=== PATIENT | male | born 1960 | race Caucasian/White ===

== ENCOUNTER 2019-10-22 17:29 | Emergency (ER) | payer OTHER ==
[2019-10-22 17:40] VITALS: BP 124/87; PULSE 63; RESP 18; TEMP 98.3
--- NOTE | 2019-10-22 19:08 | XR ---
EXAMINATION TYPE: XR tibia fibula RT DATE OF EXAM: 10/22/2019 COMPARISON: NONE HISTORY: Leg pain TECHNIQUE: 4 views FINDINGS: The tibia and fibula appear intact. I see no fracture nor dislocation. Knee joint and ankle joint appear intact. IMPRESSION: Negative right tibia and fibula exam.
--- NOTE | 2019-10-22 19:11 | XR ---
EXAMINATION TYPE: XR foot complete RT DATE OF EXAM: 10/22/2019 COMPARISON: NONE HISTORY: Foot pain TECHNIQUE: 3 views FINDINGS: Metatarsals are intact. I see no fracture nor dislocation. There is soft tissue swelling of the forefoot. IMPRESSION: Soft tissue swelling. No fracture seen.
--- NOTE | 2019-10-22 19:43 | US ---
EXAMINATION TYPE: US venous doppler duplex LE RT DATE OF EXAM: 10/22/2019 7:39 PM COMPARISON: NONE CLINICAL HISTORY: r/o blood clot. R/O blood clot. Patient injured leg at work 2 weeks ago. Pain. No h x of DVT. Patient does not take blood thinners. SIDE PERFORMED: Right TECHNIQUE: The lower extremity deep venous system is examined utilizing real time linear array sonog antonio with graded compression, doppler sonography and color-flow sonography. VESSELS IMAGED: External Iliac Vein (EIV) Common Femoral Vein Deep Femoral Vein Greater Saphenous Vein * Femoral Vein Popliteal Vein Small Saphenous Vein * Proximal Calf Veins (* superficial vessels) Right Leg: No evidence of DVT in veins imaged at this time from prox calf veins to EIV. IMPRESSION: No evidence of right leg deep vein thrombosis.
--- NOTE | 2019-10-22 19:50 | ED ---
Lower Extremity Injury HPI - General Chief Complaint: Extremity Injury, Lower Stated Complaint: [facility]-leg injury Time Seen by Provider: 10/22/19 17:58 Source: patient Mode of arrival: ambulatory Limitations: no limitations - History of Present Illness Initial Comments: 59yo male presenting today for chief complaint of right leg swelling after injury 2 weeks ago. Patient states that he had injury at work where a couple hit him knocking him down onto a metal object. Patient states that compresses calf. Patient states that he has had pain and swelling since. Patient states that immediately after the swelling is very severe he states that has significantly improved status and following up with [facility] who told him to come to the emergency department for evaluation. Patient states he is able to walk weight-bear and ambulate without difficulty states discomfort is very tolerable now. Patient was not concerned about the pain he was more concerned that the swelling was persisting although it has improved significantly. Patient denies any redness openings of the skins or abrasion. Patient denies any injury to the abdomen chest back left lower extremity. Patient denies head injury/neck injury> Remaining ROS (-). - Related Data Allergies Allergy/AdvReac Type Severity Reaction Status Date / Time No Known Allergies Allergy Verified 10/22/19 17:36 Review of Systems ROS Statement: Those systems with pertinent positive or pertinent negative responses have been documented in the HPI. ROS Other: All systems not noted in ROS Statement are negative. Past Medical History Past Medical History: No Reported History History of Any Multi-Drug Resistant Organisms: None Reported Past Surgical History: Tonsillectomy Past Psychological History: No Psychological Hx Reported Smoking Status: Never smoker Past Alcohol Use History: None Reported Past Drug Use History: None Reported General Exam - General Exam Comments Initial Comments: General: The patient is awake and alert, in no distress Eye: Pupils are equal, round and reactive to light, extra-ocular movements are intact. No nystagmus. There is normal conjunctiva bilaterally. No signs of icterus. Cardiovascular: There is a regular rate and rhythm. No murmur, rub or gallop is appreciated. Respiratory: Lungs are clear to auscultation, respirations are non-labored, breath sounds are equal. No wheezes, stridor, rales, or rhonchi. Musculoskeletal: Diffuse swelling of the right leg, no redness. Normal ROM, no tenderness. Strength 5/5. Sensation intact. DP pulses equal bilaterally 2+. Rober palpable, functioning, plantar flexion wtih squeezing calf. Neurological: A&O x 3. CN II-XII intact grossly, There are no obvious motor or sensory deficits. Coordination appears grossly intact. Speech is normal. Skin: Skin is warm and dry and no rashes or lesions are noted. Psychiatric: Cooperative, appropriate mood & affect, normal judgment. Limitations: no limitations Course Vital Signs 10/22/19 17:37 Temperature 98.3 F Pulse Rate 63 Respiratory 18 Rate Blood Pressure 124/87 O2 Sat by Pulse 97 Oximetry Medical Decision Making - Medical Decision Making US (-) DVT. Pt staets symptoms improving. Achilles appears intact. XR (-) for osseous process. Patient compartments soft and compressible.Patient recommend elevation of leg with ICE application/rest. Patient may return to work. Patient has [facility] f/u this week. Patient neurovascularly intact intact and ambulates without difficulty. Patient discharged with f/u, return parameters discussed. Disposition Clinical Impression: Right leg pain, Right leg swelling, Foot swelling, Right leg injury Disposition: HOME SELF-CARE Condition: Good Instructions (If sedation given, give patient instructions): R.I.C.E. Treatment (ED) Additional Instructions: Please use medication as discussed. Please follow-up with family doctor in the next 2 days. Please return to emergency room if the symptoms increase or worsen or for any other concerns. Is patient prescribed a controlled substance at d/c from ED?: No Referrals: Tyrese Sousa DO [Primary Care Provider] - 1-2 days Time of Disposition: 19:50
== END 2019-10-22 20:28 | disposition home or self-care (01) ==
LOC: EC 17:29
DX: S89.91XA Unspecified injury of right lower leg, initial encounter (principal); W22.8XXA Striking against or struck by other objects, initial encounter; Y92.69 Other specified industrial and construction area as the place of occurrence of the external cause; Y99.0 Civilian activity done for income or pay
CPT/HCPCS: 99284